=== PATIENT | female | born 1980 | race Caucasian/White ===

== ENCOUNTER 2016-12-25 10:01 | Emergency (ER) | payer OTHER ==
[2016-12-25 10:28] VITALS: BP 113/77
--- NOTE | 2016-12-25 10:40 | UC ---
Ear Complaint HPI - HPI Summary HPI Summary: The patient comes in today for: 1. Right ear pain, right sore throat, fever/chills: Onset: 2 days ago. Palliative/provocative: Nothing makes her symptoms better or worse other than milkshakes help "a little bit" and the swallowing makes throat pain worse. Quality: Throat: scratchy. Ear: ache. Region: Right throat and right ear. Severity: 4/10 Time: Constant. Associated symptoms: Fevers: 101 to 103 at home. Temperature last night: 103. This mornin. Cough: Dry. Rhinitis: None. Vomiting/Diarrhea: None for both. * - History of Current Complaint Chief Complaint: UCGeneralIllness Stated Complaint: THROAT,EAR,FEVER Time Seen by Provider: 12/25/16 10:30 Hx Last Menstrual Period: "Spotted last month ... I rarely ever get a period with the Lorenza- Be" ?: No - Allergies/Home Medications Allergies/Adverse Reactions: Allergies Allergy/AdvReac Type Severity Reaction Status Date / Time Bacitracin [From Neosporin] Allergy Rash And Verified 12/25/16 10:24 Itching Neomycin [From Neosporin] Allergy Rash And Verified 12/25/16 10:24 Itching Polymyxin B [From Neosporin] Allergy Rash And Verified 12/25/16 10:24 Itching Codeine AdvReac Nausea Verified 12/25/16 10:24 PMH/Surg Hx/FS Hx/Imm Hx Previously Healthy: No - Family planning/BCP Endocrine History Of: Denies: Diabetes, Thyroid Disease, Hyperthyroidism, Hypothyroidism, Dyslipidemia Cardiovascular History Of: Denies: Cardiac Disorders, Hypertension, Pacemaker/ICD, Myocardial Infarction , Congestive Heart Failure, Atrial Fibrillation, Deep Vein Thrombosis, Bleeding Disorders Respiratory History Of: Denies: COPD, Asthma, Bronchitis, Pneumonia, Pulmonary Embolism GI/ History Of: Denies: Gastroesophageal Reflux, Ulcer, Gastrointestinal Bleed, Gall Bladder Disease, Kidney Stones, Diverticulitis, Renal Disease, Urosepsis Neurological History Of: Denies: TIA, CVA, Dementia, Seizures, Migraine Psychological History Of: Reports: Depression Denies: Anxiety, Bipolar Disorder, Schizophrenia, Post Traumatic Stress Disorder Cancer History Of: Denies: Lung Cancer, Colorectal Cancer, Breast Cancer, Prostate Cancer, Cervical Cancer Other History Of: Negative For: HIV, Hepatitis B, Hepatitis C, Anticoagulant Therapy - Surgical History Surgical History: Yes Surgery Procedure, Year, and Place: , 2011, [facility] - Family History Known Family History: Positive: Hypertension Negative: Cardiac Disease, Diabetes - Social History Occupation: Employed Full-time Alcohol Use: Occasionally Substance Use Type: None Smoking Status (MU): Former Smoker Type: Cigarettes Amount Used/How Often: 1/2 PPD Length of Time of Smoking/Using Tobacco: 10 Years Have You Smoked in the Last Year: No When Did the Patient Quit Smoking/Using Tobacco: 2007 - Immunization History Most Recent Influenza Vaccination: June 2016 Review of Systems Constitutional: Fever Skin: Negative Eyes: Negative ENT: Sore Throat Respiratory: Cough Cardiovascular: Negative Gastrointestinal: Negative Genitourinary: Negative All Other Systems Reviewed And Are Negative: Yes Physical Exam Triage Information Reviewed: Yes Appearance: Well-Appearing, No Pain Distress, Well-Nourished Vital Signs: Initial Vital Signs Temp 99.2 F 12/25/16 10:22 Pulse 110 12/25/16 10:22 Resp 16 12/25/16 10:22 BP 113/77 12/25/16 10:22 Pulse Ox 99 12/25/16 10:22 Vital Signs Reviewed: Yes Eyes: Positive: Conjunctiva Clear. Negative: Discharge ENT: Positive: Hearing grossly normal, Pharyngeal erythema - More on right than the left., Other: - There is tenderness to palpation of the right tonsilar node.. Negative: Nasal drainage, TM bulging, TM dull, TM red, Tonsillar swelling, Tonsillar exudate Dental: Negative: Gross Decay/Caries @, Dental Fracture @ Neck: Positive: Supple, Nontender, No Lymphadenopathy. Negative: Nuchal Rigidity Respiratory: Positive: Lungs clear, No respiratory distress, No accessory muscle use. Negative: Crackles, Wheezing Cardiovascular: Positive: RRR, No Murmur Abdomen Description: Positive: Nontender, No Organomegaly, Soft. Negative: Distended, Guarding, Hepatomegaly Musculoskeletal: Positive: Strength Intact, ROM Intact Neurological: Positive: Alert, Muscle Tone Normal Psychological: Positive: Age Appropriate Behavior, Consolable Skin: Negative: rashes, breakdown Diagnostics - Laboratory Diagnostic Studies Completed/Ordered: Strep test: (+) Ear Complaint Course/Dx - Course Course Of Treatment: Patient told of the positive strep test result. - Differential Dx/Diagnosis Differential Diagnosis/HQI/PQRI: Otitis Externa, Otitis Media, Pharyngitis Provider Diagnoses: Strep pharyngitis Discharge - Discharge Plan Condition: Stable Disposition: HOME Patient Education Materials: Strep Throat (ED) Forms: *Work Release Referrals: Jayne BEASLEY,Lolly Haney [Primary Care Provider] - 1 Week (Please see your primary care provider in about a week. If you don't have a primary care provider, please reference the included sheet of local provider. If you get worse, please be seen sooner.)
== END 2016-12-25 11:07 | disposition home or self-care (01) ==
LOC: UCCORT 10:01
DX: J02.0 Streptococcal pharyngitis (principal); Z88.5 Allergy status to narcotic agent; Z87.891 Personal history of nicotine dependence
CPT/HCPCS: 87651; 99212; G0463

== ENCOUNTER 2016-12-25 13:39 | Emergency (ER) | payer OTHER ==
[2016-12-25 14:00] VITALS: BP 108/79
--- NOTE | 2016-12-25 14:18 | UC ---
Ear Complaint HPI - HPI Summary HPI Summary: Patient was recently dx with strep. after taking a shower, cleaned her ear out with a q- tip noted a lot of blood on the q tip, complains of muffled hearing, she is not sure if it was there before the shower. - History of Current Complaint Chief Complaint: UCEar Stated Complaint: EAR COMPLAINT Time Seen by Provider: 12/25/16 14:01 Hx Obtained From: Patient Hx Last Menstrual Period: 11/30/16 ?: No Onset/Duration: Sudden Onset, Lasting Hours Severity Initially: Mild Severity Currently: Mild - Allergies/Home Medications Allergies/Adverse Reactions: Allergies Allergy/AdvReac Type Severity Reaction Status Date / Time Bacitracin [From Neosporin] Allergy Rash And Verified 12/25/16 13:58 Itching Neomycin [From Neosporin] Allergy Rash And Verified 12/25/16 13:58 Itching Polymyxin B [From Neosporin] Allergy Rash And Verified 12/25/16 13:58 Itching Codeine AdvReac Nausea Verified 12/25/16 13:58 PMH/Surg Hx/FS Hx/Imm Hx Previously Healthy: Yes Endocrine History Of: Denies: Diabetes, Thyroid Disease, Hyperthyroidism, Hypothyroidism, Dyslipidemia Cardiovascular History Of: Denies: Cardiac Disorders, Hypertension, Pacemaker/ICD, Myocardial Infarction , Congestive Heart Failure, Atrial Fibrillation, Deep Vein Thrombosis, Bleeding Disorders Respiratory History Of: Denies: COPD, Asthma, Bronchitis, Pneumonia, Pulmonary Embolism GI/ History Of: Denies: Gastroesophageal Reflux, Ulcer, Gastrointestinal Bleed, Gall Bladder Disease, Kidney Stones, Diverticulitis, Renal Disease, Urosepsis Neurological History Of: Denies: TIA, CVA, Dementia, Seizures, Migraine Psychological History Of: Reports: Depression Denies: Anxiety, Bipolar Disorder, Schizophrenia, Post Traumatic Stress Disorder Cancer History Of: Denies: Lung Cancer, Colorectal Cancer, Breast Cancer, Prostate Cancer, Cervical Cancer Other History Of: Negative For: HIV, Hepatitis B, Hepatitis C, Anticoagulant Therapy - Surgical History Surgical History: Yes Surgery Procedure, Year, and Place: , 2012, [facility] - Family History Known Family History: Positive: Hypertension Negative: Cardiac Disease, Diabetes - Social History Alcohol Use: Occasionally Substance Use Type: None Smoking Status (MU): Former Smoker Type: Cigarettes Amount Used/How Often: 1/2 PPD Length of Time of Smoking/Using Tobacco: 10 Years Have You Smoked in the Last Year: No When Did the Patient Quit Smoking/Using Tobacco: 2007 - Immunization History Most Recent Influenza Vaccination: June 2016 Review of Systems Constitutional: Negative Skin: Negative Eyes: Negative ENT: Ear Ache Respiratory: Negative Cardiovascular: Negative Gastrointestinal: Negative Genitourinary: Negative Motor: Negative Neurovascular: Negative Musculoskeletal: Negative Neurological: Negative Psychological: Negative All Other Systems Reviewed And Are Negative: Yes Physical Exam Triage Information Reviewed: Yes Appearance: Well-Appearing, Well-Nourished, Pain Distress Vital Signs: Initial Vital Signs Temp 98.2 F 12/25/16 13:55 Pulse 82 12/25/16 13:55 Resp 16 12/25/16 13:55 BP 108/79 12/25/16 13:55 Pulse Ox 100 12/25/16 13:55 Vital Signs Reviewed: Yes Eye Exam: Normal Eyes: Positive: Conjunctiva Clear ENT Exam: Normal ENT: Positive: Normal ENT inspection, Hearing grossly normal, Pharynx normal, TMs normal Dental Exam: Normal Neck exam: Normal Neck: Positive: Supple, Nontender, No Lymphadenopathy Respiratory Exam: Normal Respiratory: Positive: Chest non-tender, Lungs clear, Normal breath sounds Cardiovascular Exam: Normal Cardiovascular: Positive: RRR, No Murmur, Pulses Normal Abdominal Exam: Normal Abdomen Description: Positive: Nontender, No Organomegaly, Soft Bowel Sounds: Positive: Present Musculoskeletal Exam: Normal Musculoskeletal: Positive: Strength Intact, ROM Intact, No Edema Neurological Exam: Normal Neurological: Positive: Alert, Muscle Tone Normal Psychological Exam: Normal Psychological: Positive: Normal Response To Family, Age Appropriate Behavior Skin Exam: Normal Ear Complaint Course/Dx - Course Course Of Treatment: hx obtained, exam performed, meds reviewed, n osign of perforation or lesion. external canal is clean, small amount of fresh blood noted. educated on symptom relief and what to follow up for. - Differential Dx/Diagnosis Differential Diagnosis/HQI/PQRI: Cellulitis, Cerumen Impaction, Otitis Externa, Otitis Media, Trauma, URI Provider Diagnoses: right ear pain. strep pharyngitis Discharge - Discharge Plan Condition: Stable Disposition: HOME Patient Education Materials: Earache (ED) Referrals: Curtis Lee DO [Primary Care Provider] - Additional Instructions: Continue with the hot compresses. Ibuprofen or tylenol as needed. follow up with any worsening symptoms
== END 2016-12-25 14:31 | disposition home or self-care (01) ==
LOC: UCCORT 13:39
DX: H92.01 Otalgia, right ear (principal); J02.0 Streptococcal pharyngitis; Z88.5 Allergy status to narcotic agent
CPT/HCPCS: 99211; G0463

== ENCOUNTER 2017-06-15 09:27 | Emergency (ER) | payer OTHER ==
--- NOTE | 2017-06-15 09:52 | UC ---
Respiratory Complaint HPI - HPI Summary HPI Summary: Pt presents with cough, nasal congestion and generalized malaise X 1 week. - History of Current Complaint Stated Complaint: HEAD AND CHEST CONGESTION Time Seen by Provider: 06/15/17 09:37 Hx Obtained From: Patient Hx Last Menstrual Period: 11/30/16 ?: No Onset/Duration: Sudden Onset, Lasting Days - 7 Timing: Constant Severity Initially: Mild Severity Currently: Mild Character: Cough: Nonproductive Aggravating Factors: Deep Breaths, Recumbent Position Alleviating Factors: Nothing Associated Signs And Symptoms: Positive: URI, Nasal Congestion - Risk Factors Pulmonary Embolism Risk Factors: Negative Cardiac Risk Factors: Negative Pseudomonas Risk Factors: Negative - Allergies/Home Medications Allergies/Adverse Reactions: Allergies Allergy/AdvReac Type Severity Reaction Status Date / Time Bacitracin [From Neosporin] Allergy Rash And Verified 06/15/17 10:01 Itching Neomycin [From Neosporin] Allergy Rash And Verified 06/15/17 10:01 Itching Polymyxin B [From Neosporin] Allergy Rash And Verified 06/15/17 10:01 Itching Home Medications: Home Medications guaiFENesin/CODIEN 100MG-10MG* [Robitussin AC 100Mg-10Mg*] 5 - 10 ml PO Q4H PRN 06/15/17 [History Confirmed 06/15/17] PMH/Surg Hx/FS Hx/Imm Hx Previously Healthy: Yes Other History Of: Negative For: HIV, Hepatitis B, Hepatitis C, Anticoagulant Therapy - Surgical History Surgical History: Yes Surgery Procedure, Year, and Place: , 2011, [facility] - Family History Known Family History: Positive: Hypertension Negative: Cardiac Disease, Diabetes - Social History Occupation: Employed Full-time Lives: With Family Alcohol Use: Occasionally Substance Use Type: None Smoking Status (MU): Former Smoker Type: Cigarettes Amount Used/How Often: 1/2 PPD Length of Time of Smoking/Using Tobacco: 10 Years Have You Smoked in the Last Year: No When Did the Patient Quit Smoking/Using Tobacco: 2007 - Immunization History Most Recent Influenza Vaccination: June 2016 Review of Systems Constitutional: Negative Skin: Negative Eyes: Negative ENT: Other - nasal congestion Respiratory: Cough Cardiovascular: Negative Gastrointestinal: Negative Genitourinary: Negative Motor: Negative Neurovascular: Negative Musculoskeletal: Negative Neurological: Negative Psychological: Negative All Other Systems Reviewed And Are Negative: Yes Physical Exam Triage Information Reviewed: Yes Appearance: Ill-Appearing Vital Signs Reviewed: Yes Eye Exam: Normal ENT Exam: Other ENT: Positive: Nasal congestion Dental Exam: Normal Neck exam: Normal Respiratory Exam: Normal Respiratory: Positive: No respiratory distress, Decreased breath sounds - bilateral bases Cardiovascular Exam: Normal Musculoskeletal Exam: Normal Neurological Exam: Normal Psychological Exam: Normal Skin Exam: Normal Respiratory Course/Dx - Differential Dx/Diagnosis Differential Diagnosis/HQI/PQRI: Bronchitis Provider Diagnoses: Bronchitis Discharge - Discharge Plan Condition: Stable Disposition: HOME Prescriptions: Azithromycin TAB* [Zithromax TAB (Z-LES) 250 mg #6 tabs] 2 tab PO .TODAY, THEN 1 DAILY #1 les methylPREDNISolone TAB* [Medrol TAB*] 4 - 8 mg PO .SEE LES #1 les Patient Education Materials: Acute Bronchitis (ED) Referrals: Curtis Lee DO [Primary Care Provider] - If Needed Additional Instructions: Please follow up with your PCP or return to clinic as needed.
[2017-06-15 10:05] VITALS: BP 106/73
== END 2017-06-15 10:14 | disposition home or self-care (01) ==
LOC: UCCORT 09:27
DX: J40 Bronchitis, not specified as acute or chronic (principal); Z87.891 Personal history of nicotine dependence
CPT/HCPCS: 99212; G0463

== ENCOUNTER 2019-05-28 20:10 | Emergency (ER) | payer OTHER ==
--- OUTSIDE RECORDS SUMMARY | 2019-05-28 20:18 | XMS REPORT | Continuity of Care Document ---
:1980 External Reference #:[id number] Author Name Annetta Corbett PA Address [address] 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 [phone] Problems Active Problems Provider Date Patellar bursitis of right knee Annetta Corbett PA Onset: 05/25/2019 Social History Type Date Description Comments Sex Unknown Tobacco Use Start: Unknown End: Former Cigarette Smoker QUIT IN 2007 Unknown ETOH Use Drinks Alcoholic Beverages Rarely Recreational Drug Use Denies Drug Use Tobacco Use Start: Unknown End: Patient is a former 1 ppd (at the very Unknown smoker most) x 10 to 11 years Quit 10 years Smoking Status Reviewed: 05/25/19 Patient is a former 1 ppd (at the very smoker most) x 10 to 11 years Quit 10 years Enjoy Exercising Does not enjoy exercising Smoke Alarms Carbon Monoxide Detector: Yes Smoke Alarms Yes Allergies, Adverse Reactions, Alerts Active Allergies Reaction Severity Comments Date Codeine Sulfate 07/20/2009 Bactrim 07/20/2009 Neosporin 05/26/2018 Medications Active Medications SIG Qnty Indications Ordering Provider Date Vitamin D 1 by mouth every Unknown 1000Unit Tablets day Lorenza-Be 1 po qd Unknown 0.35mg Tablets Bupropion HCL ER (XL) 1 by mouth every Unknown 150mg day Tablets ER 24HR Ibuprofen Unknown 600mg Tablets Immunizations CPT Code Status Date Vaccine Lot # [id number] Given 07/11/2011 flu vaccination [id number] Vital Signs Date Vital Result Comment 05/25/2019 9:00am BP Systolic 108 mmHg BP Diastolic 78 mmHg Body Temperature 97.8 F Heart Rate 67 /min Height 63 inches 5'3" Weight 146.00 lb BMI (Body Mass Index) 25.9 kg/m2 BSA (Body Surface Area) 1.69 m2 [place] body weight in kilograms 52 kg O2 % BldC Oximetry 99 % 12/27/2010 5:30pm Heart Rate 71 /min Respiratory Rate 18 /min Height 63 inches 5'3" Weight 122.00 lb BMI (Body Mass Index) 21.6 kg/m2 Results Test Date Facility Test Result H/L Range Note Laboratory test 05/25/2019 [facility] Synovial FLD <pending> finding [address] [place] [address] [phone] Procedures Date Code Description Status 05/25/2019 63019 Asp./Injection major joint Completed Medical Devices Description No Information Available Encounters Type Date Location Provider Dx Diagnosis Office Visit 05/25/2019 [facility] Annetta Corbett M70.41 Prepatellar 9:00a AYO bursitis, right knee Assessments Date Code Description Provider 05/25/2019 M70.41 Prepatellar bursitis, right knee Annetta Corbett PA Plan of Treatment Future Appointment(s):06/01/2019 8:45 am - Annetta Corbett PA at [facility]/25/2019 - Annetta Corbett PAM70.41 Prepatellar bursitis, right kneeComments:With a history of cellulitis with the underlying prepatellar bursitis and failure to completely resolve of the second course of antibiotics, I have recommended an aspiration to see if this is a septic bursitis. She does wish to proceed. Verbal consent was obtained for aspiration of the right knee. 10 cc of 1% lidocaine was injected after sterile prep with alcohol. After adequate anesthesia 18 gauge needle was used to aspirate a total of 7 cc of serosanguineous fluid from the prepatellar bursa. Compression dressing was placed. She'll continue the antibiotics that she is currently on - Clindamycin , I have sent the fluid to the lab for culture, crystals and Gram stain. We will give her a call later on in the week with the results. I will recheck her back in 1 week if she is no longer infected and the aspirate does not show infection but she is still swollen and painful we could consider an injection.AllFollow up:1 wk Functional Status Description No Information Available Mental Status Description No Information Available Referrals Description No Information Available
[2019-05-28 20:24] VITALS: BP 120/75
--- NOTE | 2019-05-28 20:35 | UC ---
Head Injury HPI - HPI Summary HPI Summary: 38-year-old female who was washing windows that fold outward. After she was finished with the upper window she put it back in place and it fell towards her and the frame of it hit her in the left forehead. It caused a very small superficial laceration and hematoma to that area. Loss of consciousness, no nausea or vomiting. - History Of Current Complaint Chief Complaint: UCHeadInjury Stated Complaint: HEAD INJURY Time Seen by Provider: 05/28/19 20:17 Hx Obtained From: Patient Hx Last Menstrual Period: 05/01/19 ?: No Onset/Duration: Sudden Onset Severity Currently: Mild Severity Initially: Mild Pain Intensity: 2 Aggravating Factor(s): Nothing Alleviating Factor(s): Nothing Associated Signs And Symptoms: Positive: Negative, Other - Patient denies neck pain - Allergies/Home Medications Allergies/Adverse Reactions: Allergies Allergy/AdvReac Type Severity Reaction Status Date / Time bacitracin Allergy Rash Verified 05/28/19 20:25 [From Neosporin ([id number])] codeine Allergy Vomiting Verified 05/28/19 20:25 neomycin Allergy Rash Verified 05/28/19 20:25 [From Neosporin ([id number])] polymyxin B Allergy Rash Verified 05/28/19 20:25 [From Neosporin ([id number])] PMH/Surg Hx/FS Hx/Imm Hx Previously Healthy: Yes Psychological History: Depression Other History Of: Negative For: HIV, Hepatitis B, Hepatitis C, Anticoagulant Therapy - Surgical History Surgical History: Yes Surgery Procedure, Year, and Place: , 2011, [facility] - Family History Known Family History: Positive: Hypertension Negative: Cardiac Disease, Diabetes - Social History Alcohol Use: Occasionally Substance Use Type: None Smoking Status (MU): Former Smoker Type: Cigarettes Amount Used/How Often: 1/2 PPD Length of Time of Smoking/Using Tobacco: 10 Years Have You Smoked in the Last Year: No When Did the Patient Quit Smoking/Using Tobacco: 2007 - Immunization History Most Recent Influenza Vaccination: June 2016 Review of Systems All Other Systems Reviewed And Are Negative: Yes Skin: Positive: Other - Very small superficial laceration to the left forehead. Is Patient Immunocompromised?: No Physical Exam Triage Information Reviewed: Yes Appearance: Well-Appearing, No Pain Distress, Well-Nourished Vital Signs: Initial Vital Signs Temp 98.1 F 05/28/19 20:20 Pulse 74 05/28/19 20:20 Resp 16 05/28/19 20:20 BP 120/75 05/28/19 20:20 Pulse Ox 100 05/28/19 20:20 Vital Signs Reviewed: Yes Eyes: Positive: Conjunctiva Clear - Kathi, EOMI ENT: Positive: Hearing grossly normal, Pharynx normal, TMs normal, Uvula midline Neck: Positive: Supple, Nontender - C-spine nontender, No Lymphadenopathy Respiratory: Positive: Chest non-tender, Lungs clear, Normal breath sounds, No respiratory distress, No accessory muscle use Cardiovascular: Positive: RRR, No Murmur, Pulses Normal, Brisk Capillary Refill Musculoskeletal: Positive: Strength Intact, ROM Intact, Other: - Good peripheral pulses neuro sensation capillary refill, good arm and leg strength against resistance. Skull is intact. There is a small hematoma to the left forehead approximately 1.5 cm in diameter with a small superficial laceration approximately 0.5 cm in length. Leading. Neurological: Positive: Alert, Muscle Tone Normal, Other: - Cranial nerves II through XII are intact. Psychological Exam: Normal Skin: Positive: Other - See above note. Head Injury Course/Dx - Course Course Of Treatment: The patient is comfortable here. At this point in time she is to apply ice to the sore area. She was given head injury precautions and those were reviewed with her. - Differential Dx/Diagnosis Provider Diagnosis: Head contusion, Laceration of forehead Discharge - Sign-Out/Discharge Documenting (check all that apply): Patient Departure All imaging exams completed and their final reports reviewed: No Studies - Discharge Plan Condition: Good Disposition: HOME Patient Education Materials: Head Injury (ED) Referrals: Curtis Lee DO [Primary Care Provider] - Additional Instructions: Continue to apply ice to the affected area intermittently today and tomorrow. Take Tylenol for pain. Follow-up with your primary care provider if you have any concerns. If you develop any change in her normal mental status, severe headache or vomiting your to go to the emergency room for further care. - Billing Disposition and Condition Condition: GOOD Disposition: Home - Attestation Statements Provider Attestation: I was available for consult. This patient was seen by the NAREN. The patient was not presented to, seen by, or examined by me. -Beronica
== END 2019-05-28 20:48 | disposition home or self-care (01) ==
LOC: UCCORT 20:10
DX: S01.81XA Laceration without foreign body of other part of head, initial encounter (principal); W22.8XXA Striking against or struck by other objects, initial encounter; Y93.E9 Activity, other interior property and clothing maintenance; Y92.9 Unspecified place or not applicable; Z88.3 Allergy status to other anti-infective agents; Z88.5 Allergy status to narcotic agent; Z87.891 Personal history of nicotine dependence
CPT/HCPCS: 99211; G0463